=== PATIENT | female | born 1985 | race Caucasian/White ===

== ENCOUNTER → 2019-01-23 | Outpatient (CLI) | payer OTHER ==
--- NOTE | 2019-01-24 10:29 | RADIOLOGY REPORT (SQ) ---
EXAM DESCRIPTION: HYSTEROSALPINGOGRAM; HYSTERO CATH/INJECTION COMPLETED DATE/TIME: 01/23/2019 4:34 pm REASON FOR STUDY: INFERTILITY COMPARISON: None. PROCEDURE: PRE-PROCEDURE: Procedure was explained to the patient. She was told to expect cramping du ring the procedure, and possible spotting post procedure. PROCEDURE: The cervix was prepped in sterile fashion. Under direct visual inspection, the cervix was cannulated with the hysterosalpingogram catheter and contrast injected. TECHNIQUE: Temporal fluoroscopic images acquired during the procedure stored to PACS. FLUOROSCOPY TIME: 14 seconds 12 digital fluoroscopic images saved to PACS. LIMITATIONS: None. FINDINGS: UTERUS: No identified anomalies. No synechia. RIGHT ADNEXA: Only a very short segment of the right fallopian tube adjacent to the uterus opacifies with contrast. LEFT ADNEXA: Normal length left fallopian tube. However, there is pocket Ing of contrast in the fall opian tube adjacent to the ovary. No free spillage of contrast from the ovary. POST PROCEDURE: The patient tolerated the procedure with no adverse effects. IMPRESSION: Bilateral tubal occlusion COMMENT: Study performed by and interpreted by the radiologist. Study performed by BUCKLE ATTACHER physician. Supervision and interpretation by the radiologist. Quality ID 145: Final reports for procedures using fluoroscopy that document radiation exposure mike paulino, or exposure time and number of fluorographic images (if radiation exposure indices are not avail able) TECHNICAL DOCUMENTATION: JOB ID: [id number] [employer]- All Rights Reserved Reading location - IP/workstation name: [email or web address]
--- NOTE | 2019-01-24 10:29 | RADIOLOGY REPORT (SQ) ---
EXAM DESCRIPTION: HYSTEROSALPINGOGRAM; HYSTERO CATH/INJECTION COMPLETED DATE/TIME: 01/23/2019 4:34 pm REASON FOR STUDY: INFERTILITY COMPARISON: None. PROCEDURE: PRE-PROCEDURE: Procedure was explained to the patient. She was told to expect cramping du ring the procedure, and possible spotting post procedure. PROCEDURE: The cervix was prepped in sterile fashion. Under direct visual inspection, the cervix was cannulated with the hysterosalpingogram catheter and contrast injected. TECHNIQUE: Temporal fluoroscopic images acquired during the procedure stored to PACS. FLUOROSCOPY TIME: 14 seconds 12 digital fluoroscopic images saved to PACS. LIMITATIONS: None. FINDINGS: UTERUS: No identified anomalies. No synechia. RIGHT ADNEXA: Only a very short segment of the right fallopian tube adjacent to the uterus opacifies with contrast. LEFT ADNEXA: Normal length left fallopian tube. However, there is pocket Ing of contrast in the fall opian tube adjacent to the ovary. No free spillage of contrast from the ovary. POST PROCEDURE: The patient tolerated the procedure with no adverse effects. IMPRESSION: Bilateral tubal occlusion COMMENT: Study performed by and interpreted by the radiologist. Study performed by DRIVER ENGINEER physician. Supervision and interpretation by the radiologist. Quality ID 145: Final reports for procedures using fluoroscopy that document radiation exposure mike paulino, or exposure time and number of fluorographic images (if radiation exposure indices are not avail able) TECHNICAL DOCUMENTATION: JOB ID: [id number] [employer]- All Rights Reserved Reading location - IP/workstation name: [email or web address]
== END ==
LOC: RAD 15:06
PROVIDERS: ATTEND Nurse Practitioner Primary Care
DX: N97.1 Female infertility of tubal origin (principal)
CPT/HCPCS: 58340; 74740